=== PATIENT | female | born 1980 | race Caucasian/White ===

== ENCOUNTER → 2017-07-01 18:59 | Outpatient (CLI) | payer OTHER, SELFPAY ==
[2017-07-04 12:30] LABS: HPV APTIMA, High Risk Negative (Negative)
== END ==
PROVIDERS: Visit Provider Obstetrics & Gynecology
DX: Z12.4 Encounter for screening for malignant neoplasm of cervix (principal)
CPT/HCPCS: 88175; G0145

== ENCOUNTER → 2020-03-14 07:53 | Outpatient (CLI) | payer OTHER, SELFPAY ==
[2020-03-06 13:18] VITALS: BMI 27.1
[2020-03-14 10:44] LABS: Cholesterol 181 mg/dL (200); Glucose 85 mg/dL (74-106); High Density Lipoprotein 63 mg/dL; Thyroid Stim Hormone (TSH) 1.38 uIU/mL (0.358-3.74); Triglycerides 67 mg/dL; Very Low Density Lipoprotein 13 mg/dL (5-40)
== END ==
PROVIDERS: Referring Provider Obstetrics & Gynecology; Visit Provider Obstetrics & Gynecology
DX: Z13.1 Encounter for screening for diabetes mellitus (principal); Z13.220 Encounter for screening for lipoid disorders; Z13.29 Encounter for screening for other suspected endocrine disorder
CPT/HCPCS: 36415; 80061; 82947; 84443

== ENCOUNTER → 2021-03-08 07:50 | Outpatient (CLI) | payer OTHER, SELFPAY ==
[2020-03-06 13:18] VITALS: BMI 27.1
--- NOTE | 2021-03-08 08:00 | BI_ITS ---
MAMMOGRAPHY - BILATERAL SCREENING REASON FOR EXAM: Female, 40 years old. Routine annual screening examination. PERTINENT HISTORY: Non-contributory. TECHNIQUE: Digital bilateral breast demetrius (3D mammographic acquisition) in the CC and MLO projections. 2-D mediolateral oblique (MLO) and craniocaudad (CC) views of both breasts were obtained. CAD: Full Field Digital Mammography with Computer Added Detection was performed. COMPARISON: None. Baseline examination. FINDINGS: Breast Composition: The breasts are extremely dense, which lowers the sensitivity of mammography. There are no dominant masses or suspicious calcifications. No other significant abnormalities are identified. BI/SCRN MAMM (CAD)W/DEMETRIUS BILAT IMPRESSION: Negative screening mammogram. Yearly followup mammogram recommended. (A) ASSESSMENT CATEGORY: BIRADS Category 1: Negative. A letter regarding these results will be sent to the patient by the facility within 30 days. Approximately 10% of breast cancers are not detected by mammography. A normal mammogram should not delay biopsy of a clinically suspicious abnormality. [id number] Electronically Signed: Sergio Ball MD at 8:45 EST , Service support ,
== END ==
PROVIDERS: PCP Family Medicine; Referring Provider Obstetrics & Gynecology; Visit Provider Obstetrics & Gynecology
DX: Z12.31 Encounter for screening mammogram for malignant neoplasm of breast (principal)
CPT/HCPCS: 77063; 77067

== ENCOUNTER → 2022-03-21 | Outpatient (CLI) | payer OTHER, SELFPAY ==
--- NOTE | 2022-03-21 09:26 | BI_ITS ---
MAMMOGRAPHY - BILATERAL SCREENING REASON FOR EXAM: Female, 41 years old. Routine annual screening examination. PERTINENT HISTORY: Non-contributory. TECHNIQUE: Digital bilateral breast demetrius (3D mammographic acquisition) in the CC and MLO projections. 2-D mediolateral oblique (MLO) and craniocaudad (CC) views of both breasts were obtained. CAD: Full Field Digital Mammography with Computer Added Detection was performed. COMPARISON: Comparison is made with prior study dated 03/08/2021. FINDINGS: Breast Composition: The breasts are extremely dense, which lowers the sensitivity of mammography. There are no dominant masses or suspicious calcifications. No other significant abnormalities are identified. There has been no significant change since the prior study. BI/SCRN MAMM (CAD)W/DEMETRIUS BILAT IMPRESSION: Stable bilateral screening mammogram. Yearly follow-up mammogram recommended. (A) ASSESSMENT CATEGORY: BIRADS Category 1: Negative. A letter regarding these results will be sent to the patient by the facility within 30 days. Approximately 10% of breast cancers are not detected by mammography. A normal mammogram should not delay biopsy of a clinically suspicious abnormality. [id number] Electronically Signed: Sergio Ball MD at 10:18 EST ,
[2022-03-29 13:21] LABS: HPV APTIMA, High Risk Negative (Negative)
== END | disposition home or self-care (01) ==
PROVIDERS: PCP Family Medicine; Visit Provider Obstetrics & Gynecology
DX: Z12.31 Encounter for screening mammogram for malignant neoplasm of breast (principal); Z12.2 Encounter for screening for malignant neoplasm of respiratory organs
CPT/HCPCS: 77063; 77067; 87624; 88175; G0145

== ENCOUNTER 2023-03-06 12:17 | Emergency (ER) | payer OTHER, SELFPAY ==
[2023-03-06 12:18] VITALS: BP 155/85; PULSE 128; RESP 16; TEMP 36.2; O2SAT 100; BMI 27.4
--- NOTE | 2023-03-06 12:25 | EKG12_ITS ---
Test Reason : CHEST PAIN Blood Pressure : / mmHG Vent. Rate : 076 BPM Atrial Rate : 076 BPM P-R Int : 130 ms QRS Dur : 094 ms QT Int : 354 ms P-R-T Axes : 064 075 050 degrees QTc Int : 398 ms Normal sinus rhythm with sinus arrhythmia Normal ECG Confirmed by LIVIER TORRE, MEGAN ([id number]), fan mail editor CHECO MELARA ([id number]) on 03/12/2023 11:56:10 AM Referred By: Confirmed By:MEGAN MAIER MD
--- NOTE | 2023-03-06 12:25 | RAD_ITS ---
STUDY: X-RAY CHEST REASON FOR EXAM: Female, 42 years old. Chest pain. Hypertension. TECHNIQUE: Single AP portable view of the chest. COMPARISON: None. FINDINGS: Hyperinflation. The lungs are clear. There is no demonstrated pleural abnormality. Normal size heart. Normal mediastinum and eliseo. Normal visualized pulmonary arteries. Normal visualized aortic arch and descending thoracic aorta. Normal visualized thoracic spine. Normal visualized ribs, clavicles, and shoulders. There is no demonstrated abnormality of the visualized soft tissue structures of the upper abdomen. RAD/Chest 1 View (Portable) IMPRESSION: Hyperinflation. The lungs are clear. Electronically Signed: Sergio Ball MD at 13:11 EST ,
[2023-03-06 12:49] VITALS: O2SAT 99
[2023-03-06 12:53] LABS: Bacteria 0 SEEN /hpf (None Seen); Mucous, Urine 0 SEEN /hpf (<or=2+); Squamous Epithelial Cells - UA 0 SEEN /hpf (5-10); White Blood Cells 0 SEEN /hpf (0-5)
[2023-03-06 12:57] LABS: Absolute Lymphocyte Count 1.84 X10^3/uL (0.83-4.51); Absolute Neutrophil Count 3.8 X10^3/uL (2.0-7.7); Basophil# 0.02 X10^3/uL; Basophil% 0.3 % (0-1); Eosinophil# 0.14 X10^3/uL; Eosinophils% 2.3 % (0-5); Hematocrit 40.7 % (37-47); Hemoglobin 12.9 g/dL (12.0-15.0); Lymphocyte # 1.84 X10^3/ul (0.83-4.51); Mean Corp Hgb Conc 31.7 g/dL (32-36); Mean Corpuscular Volume 88.5 fL (81-99); Mean Platelet Vol. 10.8 fl (6.2-12.0); Monocyte# 0.36 X10^3/uL; Monocyte% 5.9 % (0-10); NRBC Flagged by Analyzer 0 % (0-5); Neutrophil # 3.76 X10^3/uL (2.7-7.7); Neutrophil % 61.2 % (47-70); Platelet Count 248 K/mm3 (150-450); RBC Distribution Width CV 12.2 % (11.6-14.6); RBC Distribution Width SD 39.6 fl (35.1-43.9); White Blood Count 6.1 K/mm3 (4.4-11.0)
[2023-03-06 13:00] LABS: Color, Urine Yellow (Yellow); Glucose, Dipstick Normal (Normal); Ketone-Dipstick Negative (Negative); Leukocyte Esterase-Dipstick Negative /ul (Negative); Nitrite-Dipstick Negative (Negative); Occult Blood-Urine Negative /ul (Negative); Protein-Dipstick Negative (Negative); Specific Gravity, Urine 1.005 (1.002-1.030); Urine Bilirubin Dipstick Negative (Negative); Urine Clarity Clear (Clear); Urine Urobilinogen Normal (Normal)
[2023-03-06 13:07] LABS: Red Blood Cells-Urine 0-5 SEEN /hpf (0-5)
[2023-03-06 13:14] LABS: Anion Gap 7 (5-15); BUN 14 mg/dL (7-18); BUN/Creat Ratio 16.4 RATIO (10-20); Calcium,Total 9.1 mg/dL (8.5-10.1); Chloride 105 mmol/L (98-107); Creatinine, Serum 0.85 mg/dL (0.55-1.02); EST Glomerular Filtration Rate 78 mL/min (>60); Est Glom Filt Rate - Afr Amer 94 mL/min (>60); Estimated Creatinine Clearance 80.71 ml/min; Glucose 127 mg/dL (74-106); Potassium 3.7 mmol/L (3.5-5.1); Sodium Level 138 mmol/L (136-145); Troponin-I HS (w/2H Reflex) 4 pg/mL (3.0-54.0)
[2023-03-06 14:10] LABS: Thyroid Stim Hormone (TSH) 0.93 uIU/mL (0.358-3.74)
--- NOTE | 2023-03-06 14:16 | EDS_ITS ---
HPI History of Present Illness Chief Complaint: Hypertension Informant: patient and spouse/S.O. 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 States X7 days a week, resting pulse is usually low. At rest she is intermittent seeing a heart rate going to 120s 140s and feeling symptomatic. Occasional lightheaded symptoms. No recent cough. She traveled to [place] last month. No leg swelling or cramping. No history of PE or DVT. Denies recent nausea or vomiting. Denies history of similar. Mother had history of pulmonary embolism however that was from travel to [facility]. There is no clotting disorders that she is aware of. Denies tobacco. Denies heavy caffeine use, she drinks 2 cups 12 ounce coffees a day and is typical for her. Prior similar symptoms: No PFSH PFSH Home Medications levonorgestrel 20.4 mcg/24 hrs (8 yrs) 52 mg intrauterine device (Liletta) 1 device intrauterine ONCE 05/10/19 [History Last Taken Unknown] Allergy/AdvReac Type Severity Reaction Status Date / Time prednisone Allergy Mild Other Verified 03/06/20 13:19 hydromorphone [From Dilaudid] Allergy NEEDS Verified 01/08/22 14:28 FOLLOW-UP Family History Mother Hypertension Hyperlipidemia anixety and depression Pulmonary embolism neg coag testing Father Colon cancer Hypertension Grandfather Cancer skin Grandmother CVA (cerebral vascular accident) Surgical History delivery delivered H/O dilation and curettage Social History Smoking Status: Never smoker alcohol intake: current details: social substance use type: does not use caffeine: Yes frequency: 3-4 times per week seatbelt use: always do you feel safe at home: Yes additional social history: [place]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 works at [employer] ROS ROS ED Constitutional Constitutional ED: Denies chills, fever(s) or sweats Eyes Eyes: Denies change in vision ENT ENT ED: Denies dysphagia or sore throat Cardiovascular Cardiovascular: Reports palpitations and racing heartbeat; Denies chest pain or leg edema Respiratory/Chest Respiratory/Chest: Denies cough, dyspnea or dyspnea on exertion Gastrointestinal Gastrointestinal: Denies abdominal pain, diarrhea, nausea or vomiting Genitourinary Genitourinary ED: Denies dysuria, hematuria or urinary frequency Musculoskeletal Musculoskeletal: Denies back pain, extremity pain or neck pain Integumentary Denies rash or wounds Neurologic Neurologic: Denies headache(s), paresthesias or weakness EXAM Physical Exam Const Vital Signs: 03/06/23 12:18 03/06/23 12:49 03/06/23 15:10 Temperature 97.2 F L Temperature Source Temporal Pulse Rate 128 H 110 H Respiratory Rate 16 Blood Pressure 155/85 H Blood Pressure Mean 108 Pulse Ox 100 99 Oxygen Delivery Method Room Air Room Air 03/06/23 15:20 03/06/23 15:31 03/06/23 16:26 Temperature Temperature Source Pulse Rate 61 96 78 Respiratory Rate 16 Blood Pressure 118/82 H 128/87 H 118/81 H Blood Pressure Mean 94 100 93 Pulse Ox 100 Oxygen Delivery Method Room Air Positive well nourished and well developed General Appearance ED: well developed and NAD HEENT Reports moist mucous membranes normocephalic and atraumatic Eyes PERRL, EOMs intact bilaterally and conjunctivae normal General Eye ED: Yes normal appearance of both eyes Neck no lymphadenopathy and supple General: Negative for tenderness Chest Wall Chest: Negative for tenderness Resp normal respiratory effort and normal air movement Effort and Inspection: symmetric chest movement; Negative for respiratory distress Cardio regular rate, regular rhythm and no murmurs Peripheral Pulses: pulses 2+ throughout GI normal to inspection, nondistended, normoactive bowel sounds and non-tender Palpation: Negative for guarding or rebound tenderness present Back/Spine no CVA tenderness and no thoracic nor lumbar tenderness Extremity normal to inspection General Extremety ED: Negative for edema or tenderness General Extremity: Negative for edema Neuro oriented x3 and no sensory deficits noted Sensorium / Orientation: awake and alert Skin no rashes or lesions noted and no wounds MDM MDM MDM Narrative Medical decision making narrative: Interventions / MDM: Differential diagnosis: Palpitations, cardiac dysrhythmia Diagnosis considered but do not suspect: N/A My EKG interpretation: Sinus rate of 76, no ST or T wave changes QTc 398. EKG #2: Mobitz I type 2 block. Imaging independently reviewed and interpreted by myself: CXR 1 V: no acute p rocess. 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 Laboratory studies check TSH along with D-dimer due to low risk Wells criteria with tachycardia. Dimer negative. Labs stable. Intermitted transient narrow complex tachycardia runs, Lopressor IV x 1. HR and clinical symptoms improved. Repeat EKG, noting Mobitz I block. Sent EKG to cardiology, Dr. Pettit, agrees. No BB meds due to type of block. Avoid caffeine, Holter monitor set up through ED 48hrs, he will communicate with EP, Dr. Sams for close outpatient follow up. D/w patient and significant other who agrees with plan. Re-evaluation: stable Disposition discussed with patient/family/significant other: patient and significant other Case discussed with consulting clinician: cardiology This note was generated with [employer] dictation software. It may contain incorrect words, spelling, and punctuation that were not noted in checking the note before signing. Lab Data Attestation: I reviewed the patient's lab results. Labs: Laboratory Results - last 24 hr 03/06/23 03/06/23 03/06/23 12:46 13:41 15:10 WBC 6.1 RBC 4.60 Hgb 12.9 Hct 40.7 MCV 88.5 MCH 28.0 MCHC 31.7 L RDW Std Deviation 39.6 RDW Coeff of Martínez 12.2 Plt Count 248 MPV 10.8 Immature Gran % (Auto) 0.300 Neut % (Auto) 61.2 Lymph % (Auto) 30.0 [place] % (Auto) 5.9 Eos % (Auto) 2.3 Baso % (Auto) 0.3 Absolute Neuts (auto) 3.8 Absolute Lymphs (auto) 1.84 Nucleated RBC % 0 D-Dimer Quant (PE/DVT) < 0.27 L Sodium 138 Potassium 3.7 Chloride 105 Carbon Dioxide 26.0 Anion Gap 7 BUN 14 Creatinine 0.85 Estim Creat Clear Calc 80.71 Est GFR (MDRD) Af Amer 94 Est GFR (MDRD) Non-Af 78 BUN/Creatinine Ratio 16.4 Glucose 127 H Calcium 9.1 Troponin I High Sens 4 6 TSH 0.93 Urine Color Yellow Urine Clarity Clear Urine pH 7.0 Ur Specific [place] 1.005 Urine Protein Negative Urine Glucose (UA) Normal Urine Ketones Negative Urine Occult Blood Negative Urine Nitrite Negative Urine Bilirubin Negative Urine Urobilinogen Normal Ur Leukocyte Esterase Negative Urine RBC 0-5 SEEN Urine WBC 0 SEEN Ur Squamous Epith Cells 0 SEEN Urine Bacteria 0 SEEN Urine Mucus 0 SEEN Radiography Diagnostic Testing: Clinical Impression(s) from Imaging Studies Chest X-Ray 03/06/23 12:25 IMPRESSION: Hyperinflation. The lungs are clear. Electronically Signed: Sergio Ball MD at 13:11 EST , Discharge Plan Triage Chief Complaint: Hypertension ED Provider: John Matthews Dx/Rx/DC Orders Clinical Impression: Palpitations, AV block, Mobitz 1 Instructions: Heart Block 2nd Degree, ED Palpitations Prescriptions: No Action Liletta 19.5 mcg/24 hrs (5 yrs) 52 mg intrauterine device 1 device intrauterine ONCE Rx Instructions: as a single dose Primary Care Provider: Socorro Maki Referrals: Domo Sams MD [Med Staff - Active Staff] - 3-5 Days Socorro Maki MD [Primary Care Provider] - Activity Restrictions/Additional Instructions: Your EKG notes second-degree, type I block. Avoid caffeine's at this time. Discussed with Dr. Pettit, cardiology. Holter monitor for 48 hours, follow-up with Dr. Sams. Call tomorrow, and office should reach out to you also for follow-up. Disposition Disposition: Home, Self Care Discharge Date/Time: 03/06/23 16:47
[2023-03-06 14:25] LABS: D-Dimer Quantitative (DVT/PE) < 0.27 FEU/ug/m (0.27-0.49)
[2023-03-06 14:52] LABS: Reflex Troponin-HS? (from REC) Y
[2023-03-06 15:10] VITALS: PULSE 110
[2023-03-06 15:20] VITALS: BP 118/82; PULSE 61
[2023-03-06 15:31] VITALS: BP 128/87; PULSE 96; RESP 16; O2SAT 100
[2023-03-06 15:35] LABS: Troponin-I HS 6 pg/mL (3.0-54.0)
[2023-03-06] MEDS: Metoprolol Tartrate 5 MG/5 ML Vial IV (15:37)
--- NOTE | 2023-03-06 15:51 | EKG12_ITS ---
Test Reason : REPEAT Blood Pressure : / mmHG Vent. Rate : 089 BPM Atrial Rate : 119 BPM P-R Int : 000 ms QRS Dur : 082 ms QT Int : 346 ms P-R-T Axes : 099 050 044 degrees QTc Int : 420 ms Critical Test Result: AV Block Sinus tachycardia with 2nd degree A-V block (Mobitz I) Abnormal ECG Confirmed by LIVIER TORRE, MEGAN ([id number]), newspaper editor managing CHECO MELARA ([id number]) on 03/12/2023 11:56:23 AM Referred By: Confirmed By:MEGAN MAIER MD
--- NOTE | 2023-03-06 16:02 | ED.RN ---
NO OLD EKG
[2023-03-06 16:26] VITALS: BP 118/81; PULSE 78
== END 2023-03-06 16:47 | disposition home or self-care (01) ==
PROVIDERS: Emergency Provider Emergency Medicine; PCP Family Medicine; Visit Provider Emergency Medicine
DX: R00.2 Palpitations (principal); I44.30 Unspecified atrioventricular block; I10 Essential (primary) hypertension
CPT/HCPCS: 71045; 80048; 81001; 84443; 84484; 85025; 85379; 93005; 93225; 93226; 96374; 99284; A4216

== ENCOUNTER → 2023-03-06 | Outpatient (CLI) | payer OTHER, SELFPAY | END | disposition home or self-care (01) | LOC: CVS 16:45 | PROVIDERS: PCP Family Medicine; Visit Provider Emergency Medicine | DX: Z00.00 Encounter for general adult medical examination without abnormal findings (principal) ==

== ENCOUNTER → 2023-03-28 | Outpatient (CLI) | payer OTHER, SELFPAY ==
--- NOTE | 2023-03-28 08:49 | BI_ITS ---
MAMMOGRAPHY - BILATERAL SCREENING REASON FOR EXAM: Female, 42 years old. Routine annual screening examination. PERTINENT HISTORY: Non-contributory. TECHNIQUE: Digital bilateral breast demetrius (3D mammographic acquisition) in the CC and MLO projections. 2-D mediolateral oblique (MLO) and craniocaudad (CC) views of both breasts were obtained. CAD: Full Field Digital Mammography with Computer Added Detection was performed. COMPARISON: Comparison is made with prior study dated March 21, 2022 and March 08, 2021. FINDINGS: Breast Composition: The breasts are extremely dense, which lowers the sensitivity of mammography. There are no dominant masses or suspicious calcifications. No other significant abnormalities are identified. There has been no significant change since the prior study. BI/SCRN MAMM (CAD)W/DEMETRIUS BILAT IMPRESSION: Stable bilateral screening mammogram. Yearly follow-up mammogram recommended. (A) ASSESSMENT CATEGORY: BIRADS Category 1: Negative. A letter regarding these results will be sent to the patient by the facility within 30 days. Approximately 10% of breast cancers are not detected by mammography. A normal mammogram should not delay biopsy of a clinically suspicious abnormality. [id number] Electronically Signed: Sergio Ball MD at 10:15 EST ,
== END | disposition home or self-care (01) ==
LOC: OPBI 08:47
PROVIDERS: PCP Family Medicine; Referring Provider Obstetrics & Gynecology; Visit Provider Obstetrics & Gynecology
DX: Z12.31 Encounter for screening mammogram for malignant neoplasm of breast (principal)
CPT/HCPCS: 77063; 77067

== ENCOUNTER → 2023-04-22 | Outpatient (CLI) | payer OTHER, SELFPAY ==
--- NOTE | 2023-04-22 13:03 | ECHOD_ITS ---
Reason For Study: TACHYCARDIA TYPE 1 AV BLOCK Procedure This was a 2D Doppler, Color Flow transthoracic echocardiogram. Exam performed in department. Left Ventricle Normal LV size. Left ventricular systolic function is normal. The estimated ejection fraction is 60 %. No regional wall motion abnormalities noted. Right Ventricle Normal RV size. Normal systolic function. Atria Normal left atrium. Normal right atrium. Bubble contrast study negative for right to left interatrial shunt. Mitral Valve Normal mitral valve. Tricuspid Valve Normal tricuspid valve. Aortic Valve Normal aortic valve. Trisinus/trileaflet aortic valve. Pulmonic Valve Normal pulmonic valve. Great Vessels Normal aortic root. The pulmonary artery is normal size. Normal inferior vena cava. Pericardium/Pleural No pericardial effusion. Medication 22 gauge I.V. with prn adaptor inserted into right arm. Performed a rapid injection of agitated mix of 9 cc saline and 1cc air to assess for atrial septal defect. MMode/2D Measurements & Calculations LVIDd: 5.2 cm IVSd: 0.74 cm Ao root diam: 3.0 cm LVIDs: 3.0 cm LVPWd: 0.75 cm RVDd: 3.2 cm FS: 41.9 % LAV(MOD-bp): 45.1 ml LVAd ap4: 29.9 cm2 LVAd ap2: 34.1 cm2 LAV(MOD-bp) Indexed: 24.2 ml/m2 LVLd ap4: 8.4 cm LVLd ap2: 8.8 cm LAV(MOD-sp2): 44.3 ml EDV(MOD-sp4): 89.9 ml EDV(MOD-sp2): 109.8 ml LAV(MOD-sp4): 44.4 ml EDV(sp4-el): 90.6 ml EDV(sp2-el): 112.3 ml LVAs ap4: 18.2 cm2 LVAs ap2: 21.0 cm2 LVLs ap4: 6.8 cm LVLs ap2: 7.4 cm ESV(MOD-sp4): 41.3 ml ESV(MOD-sp2): 50.4 ml ESV(sp4-el): 41.6 ml ESV(sp2-el): 50.7 ml EF(MOD-sp4): 54.0 % EF(MOD-sp2): 54.1 % EF(sp4-el): 54.1 % SV(MOD-sp4): 48.5 ml SV(MOD-sp2): 59.4 ml SV(sp4-el): 49.1 ml LA A4 area: 15.6 cm2 LA dimension(2D): 3.7 cm RA A4 area: 11.2 cm2 TAPSE: 2.4 cm Time Measurements MV dec time: 0.20 sec Doppler Measurements & Calculations MV E max jose manuel: 70.0 cm/sec Lat Peak E' Jose Manuel: 16.0 cm/sec Med Peak E' Jose Manuel: 16.3 cm/sec MV A max jose manuel: 45.3 cm/sec E/E' lat: 4.4 E/E' med: 4.3 MV E/A: 1.5 MV V2 max: 82.6 cm/sec Ao V2 max: 137.4 cm/sec MV max P.7 mmHg MV dec slope: 358.0 cm/sec2 Ao max P.6 mmHg MV V2 mean: 46.5 cm/sec Ao V2 mean: 97.6 cm/sec MV mean P.0 mmHg Ao mean P.3 mmHg MV V2 VTI: 27.3 cm Ao V2 VTI: 32.3 cm AV (velocity ratio): 0.75 LV V1 max: 106.9 cm/sec PA V2 max: 107.4 cm/sec TR max jose manuel: 220.7 cm/sec LV V1 max P.6 mmHg PA V2 mean: 80.5 cm/sec TR max P.5 mmHg LV V1 mean P.4 mmHg LV V1 mean: 72.8 cm/sec LV V1 VTI: 24.1 cm ECHO/Echo Complete Interpretation Summary Normal LV size. Left ventricular systolic function is normal. The estimated ejection fraction is 60 %. Bubble contrast study negative for right to left interatrial shunt. Structurally normal valves. Ordering Physician: Socorro Maki Referring Physician: Socorro Maki Performed By: Francia Kendall, JANY, RVT
== END | disposition home or self-care (01) ==
PROVIDERS: PCP Family Medicine; Referring Provider Family Medicine; Visit Provider Family Medicine
DX: I44.1 Atrioventricular block, second degree (principal)
CPT/HCPCS: 93306; A4216

== ENCOUNTER → 2024-04-02 | Outpatient (CLI) | payer OTHER, SELFPAY ==
--- NOTE | 2024-04-02 13:05 | BI_ITS ---
MAMMOGRAPHY - BILATERAL SCREENING REASON FOR EXAM: Female, 43 years old. Routine annual screening examination. PERTINENT HISTORY: Non-contributory. TECHNIQUE: Digital bilateral breast demetrius (3D mammographic acquisition) in the CC and MLO projections. 2-D mediolateral oblique (MLO) and craniocaudad (CC) views of both breasts were obtained. CAD: Full Field Digital Mammography with Computer Added Detection was performed. COMPARISON: Comparison is made with prior study dated March 28, 2023 and March 21, 2022. FINDINGS: Breast Composition: The breasts are extremely dense, which lowers the sensitivity of mammography. Possible 2.3 cm x 2.5 cm well-defined nodule in the anterior upper aspect of the right breast. This is not well seen on the craniocaudad view. Correlation with ultrasound recommended. No other significant abnormalities are identified. BI/SCRN MAMM (CAD)W/DEMETRIUS BILAT IMPRESSION: Questionable 2.3 cm x 2.5 cm well-defined nodule in the anterior upper aspect of the right breast as described. Correlation with ultrasound is recommended. ASSESSMENT CATEGORY: BIRADS Category 0: Incomplete. Need additional imaging evaluation. A letter regarding these results will be sent to the patient by the facility within 30 days. Approximately 10% of breast cancers are not detected by mammography. A normal mammogram should not delay biopsy of a clinically suspicious abnormality. [id number] Electronically Signed: Sergio Ball MD at 13:56 EST ,
== END | disposition home or self-care (01) ==
PROVIDERS: PCP Family Medicine; Referring Provider Obstetrics & Gynecology; Visit Provider Obstetrics & Gynecology
DX: Z12.31 Encounter for screening mammogram for malignant neoplasm of breast (principal)
CPT/HCPCS: 77063; 77067

== ENCOUNTER → 2024-04-09 | Outpatient (CLI) | payer OTHER, SELFPAY ==
--- NOTE | 2024-04-09 14:28 | US_ITS ---
STUDY: ULTRASOUND BREAST - RIGHT REASON FOR EXAM: Female, 43 years old. Abnormal screening mammogram. TECHNIQUE: Axial and longitudinal images of the RIGHT breast were performed with a high resolution ultrasound transducer. # OF IMAGES: 60 COMPARISON: Comparison is made with prior mammogram dated April 02, 2024. FINDINGS: RIGHT Breast: The upper half of the right breast was examined with ultrasound. 3 cysts are seen at the 9:00 position breast at 4 cm from nipple. The largest measures 1.6 cm x 1.5 cm x 0.6 cm. US/Breast Limited Unilateral IMPRESSION: The mammographic abnormality corresponds to 3, adjacent cysts at the 9:00 position breast at 4 cm from nipple. Routine mammographic follow-up recommended. ASSESSMENT CATEGORY: BIRADS Category 0: Incomplete. Need additional imaging evaluation. A letter regarding these results will be sent to the patient by the facility within 30 days. Electronically Signed: Sergio Ball MD at 15:31 EST ,
== END | disposition home or self-care (01) ==
LOC: OPUS 14:28
PROVIDERS: PCP Family Medicine; Referring Provider Obstetrics & Gynecology; Visit Provider Obstetrics & Gynecology
DX: N63.15 Unspecified lump in the right breast, overlapping quadrants (principal)
CPT/HCPCS: 76642

== ENCOUNTER → 2024-04-19 | Outpatient (CLI) | payer OTHER, SELFPAY ==
--- NOTE | 2024-04-19 13:47 | CT_ITS ---
STUDY: CT CHEST WITHOUT CONTRAST REASON FOR EXAM: Female, 43 years old. SCREENING, FAMILY HX limited chest over read only RADIATION DOSAGE (If Supplied By Facility): CTDIvol = ( 12.19 ) mGy, DLP = ( 195.04 ) mGycm TECHNIQUE: Transaxial imaging was performed without the administration of intravenous contrast material. Individualized dose optimization techniques were used for this CT. COMPARISON: No relevant priors. FINDINGS: CHEST Mild degree of bibasilar dependent atelectasis. There is no demonstrated pleural abnormality. There are minimal calcifications of the coronary arteries. Normal mediastinum. Normal hilar regions. Normal unenhanced pulmonary arteries. There is atherosclerotic calcification of the aortic arch with tortuosity and elongation of the aortic arch and descending thoracic aorta. Normal osseous structures. There is no demonstrated abnormality of the visualized upper abdomen. CT/Limited Chest CT Cardiac Only IMPRESSION: Minimal degree of coronary artery calcification. Electronically Signed: Sergio Ball MD at 14:50 EST ,
--- NOTE | 2024-04-19 17:18 | CA.SCORE ---
Calcium Scoring Date of Study:: 04/19/24 Indications Indications: Family history Coronary Calcium Scoring: High-resolution Computed Tomographic imaging of the chest was performed on [04/19/24 ], with particular attention paid to the coronary arteries. Images from the examination were analyzed for the presence and extent of coronary artery calcification , using coronary calcium quantification software. The patient tolerated the procedure well and there were no complications. The results of the coronary calcification analysis are provided below. Findings Coronary Artery Left Main (LM): 0 Left Anterior Descending (LAD): 4.3 Left Circumflex (LCX): 0 Right Coronary Artery (RCA): 0 Total Agatston Score: 4.3 Percentile Rankin Calcium Scoring Interpretation: Different methods to categorize the overall amount of coronary plaque. Overall amount CAC SIS Visual of coronary plaque P1 Mild -100 <2 1-2 vessels with mild amount of plaque P2 Moderate 101-300 3-4 1-2 vessels with moderate amount, 3 vessels with mild amount of plaque P3 Severe 301-999 5-7 3 vessels with moderate amount, 1 vessel with severe amount of plaque P4 Extensive >1000 >8 2-3 vessels with severe amount of plaque Conclusion: Minimal atherosclerotic plaquing in the LAD distribution.
== END | disposition home or self-care (01) ==
LOC: CT 13:46
PROVIDERS: PCP Family Medicine; Referring Provider Family Medicine; Visit Provider Family Medicine
DX: Z13.6 Encounter for screening for cardiovascular disorders (principal)
CPT/HCPCS: 75571; 76380

== ENCOUNTER → 2024-05-01 | Outpatient (CLI) | payer OTHER, SELFPAY ==
[2024-05-01 09:27] LABS: Cholesterol 186 mg/dL (200); High Density Lipoprotein 79 mg/dL; Triglycerides 47 mg/dL; Very Low Density Lipoprotein 9 mg/dL (5-40)
== END | disposition home or self-care (01) ==
PROVIDERS: PCP Family Medicine; Referring Provider Family Medicine; Visit Provider Family Medicine
DX: I25.10 Atherosclerotic heart disease of native coronary artery without angina pectoris (principal)
CPT/HCPCS: 36415; 80061

== ENCOUNTER → 2024-08-16 | Outpatient (CLI) | payer OTHER, SELFPAY ==
--- NOTE | 2024-08-16 14:00 | US_ITS ---
PROCEDURE: BREAST LIMITED UNILATERAL 08/16/2024 REASON FOR EXAM: BREAST PAIN AND LUMPS Inconclusive mammogram. Breast masses. Evaluate. Heterogeneously dense breast tissue. TECHNIQUE: Targeted left breast ultrasound. COMPARISON: Mammogram studies dated 08/08/2024 and 04/02/2024 FINDINGS: Left breast ultrasound was targeted to the masses and palpable abnormalities.. There are multiple cystic masses seen in the right breast correlating to masses on the mammogram. These cystic masses do correlate to the painful palpable abnormalities. The cysts are located at the following locations: 9 o'clock, 4 cm from the nipple position measuring 14 x 11 x 8 mm, 10 o'clock, 6 cm from the nipple position measuring 14 x 9 x 5 mm, 11 o'clock, 5 cm from the nipple position measuring 7 x 5 x 3 mm (this cyst is septated), and 10 o'clock, 7 cm from the nipple position measuring 10 x 8 x 4 mm( this cyst is septated). There are no suspicious solid masses seen in the right breast. US/Breast Limited Unilateral IMPRESSION: Impression: There are benign-appearing cystic masses in the left breast. Aspir ation of the 2 larger cysts is recommended. Birads: BI-RADS 2: BENIGN. RECOMMEND ANNUAL MAMMOGRAPHIC SCREENING. Reading Location: [id number]
--- NOTE | 2024-08-16 14:00 | BI_ITS ---
EXAM: Bilateral digital diagnostic mammogram with lee. CLINICAL HISTORY: Right breast palpable abnormality. COMPARISON: Right breast ultrasound dated 04/09/2024 mammogram studies dated 04/02/2024 and 03/28/2023 TECHNIQUE: Digital CC and MLO views of the right breast were performed with lee. FINDINGS: Breast composition: The breasts are is extremely dense which does lower the sensitivity mammography. A radiopaque marker is placed over the right breast palpable abnormality which is located laterally in the breast. There are partially obscured isodense masses in this location. Targeted ultrasound is recommended for further evaluation. BI/DIAG MAMM W/CAD, UNILAT IMPRESSION: BI-RADS category 0: Incomplete. Need additional imaging evaluation. Ultrasoun d will be performed for further evaluation of the palpable abnormality/and mass seen on the mammogram. Reading Location: [id number]
== END | disposition home or self-care (01) ==
PROVIDERS: PCP Family Medicine; Referring Provider Advanced Practice Midwife; Visit Provider Advanced Practice Midwife
DX: N60.09 Solitary cyst of unspecified breast (principal); N64.4 Mastodynia; R92.8 Other abnormal and inconclusive findings on diagnostic imaging of breast; N64.59 Other signs and symptoms in breast
CPT/HCPCS: 76642; 77061; 77065; G0279

== ENCOUNTER → 2025-04-04 | Outpatient (CLI) | payer OTHER, SELFPAY ==
--- NOTE | 2025-04-04 15:15 | BI_ITS ---
EXAM: SCRN MAMM (CAD)W/DEMETRIUS BILAT DATE: 04/04/2025 CLINICAL HISTORY: F, Age 44 y/o , SCREEN FOR BREAST CANCER TECHNIQUE: Procedure Code: [id number] Modality: MG Procedure: SCRN MAMM (CAD)W/DEMETRIUS BILAT COMPARISON: Prior exam(s) were compared FINDINGS: TISSUE DENSITY: The breasts are heterogeneously dense, which may obscure small masses. Bilateral Breast Mammographic Findings: No significant masses, calcifications or other abnormalities are identified. BI/SCRN MAMM (CAD)W/DEMETRIUS BILAT IMPRESSION: No mammographic evidence of malignancy. OVERALL FINAL ASSESSMENT BI-RADS 1: NEGATIVE. RECOMMENDATION: Routine annual follow-up in 1 Year Additional Recommendation none A letter with findings and recommendations will be mailed to the patient. Reading Location: [id number]
== END | disposition home or self-care (01) ==
LOC: OPBI 15:06
PROVIDERS: PCP Family Medicine; Referring Provider Obstetrics & Gynecology; Visit Provider Obstetrics & Gynecology
DX: Z12.31 Encounter for screening mammogram for malignant neoplasm of breast (principal)
CPT/HCPCS: 77063; 77067